=== PATIENT | male | born 1945 | race Caucasian/White ===

== ENCOUNTER 2019-12-18 09:35 | Outpatient (CLI) | payer MEDICARE, SELFPAY ==
--- NOTE | ~2019-12-18 | MR_ITS ---
EXAMINATION: MR ankle RT wo con DATE: 12/18/2019 10:42 INDICATION: Right foot and ankle pain TECHNIQUE: Magnetic resonance imaging (MRI) of the right ankle was performed without intravenous cont rast. Sequences included sagittal, coronal, and axial proton-density weighted fast spin echo without and with fat saturation. COMPARISON: None. FINDINGS: Medial ankle ligaments: There are heterotopic ossicles within the deep and superficial portions of the deltoid ligament consi stent with chronic sprains. There is scarring with thickening and mild increased signal of the distal superficial deltoid ligament. The spring ligament complex is normal. Lateral ankle ligaments: The anterior and posterior inferior tibiofibular ligaments are normal. The calcaneofibular and computer forensic specialist ior talofibular ligaments are normal. There is thickening of the anterior talofibular ligament with h eterotopic ossification at its fibular attachment consistent with sequela of chronic sprain. Tendons: Mild distal Achilles tendinosis without discrete tear. The peroneus longus and brevis tendons are nor mal. The tibialis anterior and extensor hallucis longus and extensor digitorum longus tendons are nor mal. There is fluid surrounding the normal tibialis posterior tendon consistent with tenosynovitis. T he flexor digitorum longus and flexor hallucis longus tendons are normal. Plantar fascia: There is thickening and mild increased signal at the proximal plantar aponeurosis with small retrocal caneal spur at its calcaneal origin. There is minimal surrounding edema consistent with mild acute on chronic plantar fascitis. Bones/other: Bone alignment is normal. No fracture. Moderate osteoarthritis at the calcaneocuboid articulation wit h subarticular cystic change at the cuboid. Mild osteoarthritis at the ankle joint with nonuniform melvin int space narrowing and mild subarticular edema along the anterolateral aspect of the tibiotalar bryon culation and mild cystic change along the fibular side of the ankle mortise. There is mild reactive m arrow edema at the medial malleolus and surrounding mild soft tissue edema. Fluid: Small right ankle joint effusion with proportional extension of fluid along the flexor hallucis longu s tendon sheath. IMPRESSION: 1. Scarring and heterotopic ossifications such with chronic sprains of the anterior talofibular and d eep and superficial deltoid ligaments. 2. Mild tibialis posterior tenosynovitis. 3. Acute on chronic plantar fasciitis. 4. Mild distal Achilles tendinosis. 5. 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 IMPRESSION: 1. Scarring and heterotopic ossifications such with chronic sprains of the ante rior talofibular and deep and superficial deltoid ligaments. 2. Mild tibialis posterior tenosynovitis. 3. Acute on chronic plantar fasciitis. 4. Mild distal Achilles tendinosis. 5. 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
== END 2019-12-18 09:36 | disposition home or self-care (01) ==
PROVIDERS: PCP Family Medicine Adolescent Medicine; Visit Provider Orthopaedic Surgery
DX: M72.2 Plantar fascial fibromatosis (principal); M19.071 Primary osteoarthritis, right ankle and foot
CPT/HCPCS: 73721

== ENCOUNTER 2023-09-19 18:03 | Emergency (ER) | payer MEDICARE, SELFPAY ==
--- NOTE | 2023-09-19 18:06 | PC.NURSE ---
Addendum entered by Ketty Palma RN 09/19/23 18:52: 3rd line should read 1804 instead of 604 Original Note: EMS called to witness cardiac arrest . performing CPR before they arrived, EMS took over had 3 EPI ACTIVITY MANAGER Pt arrived to room 10 with PATRICK performing compressions, IO to LLE. 0604 PEA, EPI given and placed on hospital equipment. 180 Pulse check PEA and ETT placed 7.5 23 at lip, EPI given. 181 left femoral pulse noted, VTACH noted 181 defib given for vtach 181 VFIB CPR resumed and EPI given 181 pulse check, no pulse. CPR stopped and ERP called TOD 1814
--- NOTE | 2023-09-19 18:42 | PC.NURSE ---
MAT notified @ 1832. Report number [id number].
--- NOTE | 2023-09-19 18:49 | ED.CPR ---
HPI - CPR General Chief Complaint: Cardiac Arrest/CPR Stated Complaint: Code blue Time Seen by Provider: 09/19/23 18:37 History of Present Illness HPI narrative: This is a 77-year-old male presenting to ED with CPR in progress. Per EMS the heard a thud and when she found her he was breathing adequately. She started CPR as directed by 911. When they arrived the patient was in V-tach. They followed ACLS protocols and he underwent multiple shocks and mx epinephrine doses. A LMA was placed and he was transported to the hospital. He arrived at the hospital @ approximately 25 minutes of ongoing CPR. Related Data Home Medications Medication Instructions Recorded Confirmed aspirin 81 mg tablet,delayed 81 mg PO DAILY 12/11/19 09/19/23 release (Adult Aspirin Regimen) calcium carbonate 600 mg-vitamin 1 tablet PO DAILY 12/11/19 09/19/23 D3 20 mcg (800 unit) chewable tablet (Caltrate 600 plus D) cetirizine 10 mg disintegrating PO 12/11/19 09/19/23 tablet (Zyrtec) cholecalciferol (vitamin D3) 50 50 mcg PO DAILY 12/11/19 09/19/23 mcg (2,000 unit) capsule (D3-1999) [id number] 300 mcg-K 60 1 tablet PO DAILY 12/11/19 09/19/23 mcg-lycop 600 mcg-lutein 300 mcg tablet (Centrum Silver Men) naproxen sodium 220 mg capsule 220 mg PO BID PRN 12/11/19 09/19/23 (Aleve) sacubitril 24 mg-valsartan 26 mg 1 tablet PO BID 12/11/19 09/19/23 tablet (Entresto) Allergies Allergy/AdvReac Type Severity Reaction Status Date / Time No Known Allergies Allergy Verified 09/19/23 10:40 [facility] Past Medical History Medical History Abnormal colonoscopy 08/27/18 Hyperplastic polyp Repeat 08/26 HTN (hypertension) Seasonal allergies Vision loss Surgical History Surgical History History of appendectomy Family History Family History Father Heart disease Rheumatoid arthritis Mother Lung cancer Family history of lung cancer Other Hypertension Social History Social History Smoking status: Former smoker Second hand tobacco smoke exposure: No Smoking end date: 04/30/04 Alcohol intake: current Drinks per week: 12 Alcohol use details: 3-4 per week Substance use: never Substance use type: does not use Living arrangements: with family Occupation/Education: retired Gender identity (if verbalized by the patient): Male Sexual Orientation (if Verbalized by the Patient): Straight or Heterosexual Spiritual care concerns: No Agree to blood products: Yes Exam Narrative: APPEARANCE: Cyanotic, LMA in place, loose device in progress Head: atraumatic. EYES: Fixed and dilated NOSE: Atraumatic NECK: Trachea midline RESPIRATORY: No respiratory effort CARDIOVASCULAR: Pulseless ABDOMINAL: Non-distended MUSCULOSKELETAl: No obvious deformities NEURO: Unresponsive SKIN:: Cold/blue PSYCHIATRIC: Unresponsive Procedures Intubation Intubation #1: Intubation Date: 09/19/23 Time out performed: Yes sedative: none Laryngoscope: Desirae Tube Size (cm): 7.5 Method of Intubation: orotracheal Number of Attempts: 1 Tube Secured Depth (cm): 23 Tube Secured Location: lips Tube Placement Confirmation: visualized tube passing through cords Patient Tolerated Procedure: well Intubation Complications: none MDM - Cardiac Arrest/CPR MDM Narrative Medical decision making narrative: 77-year-old male presenting 25 minutes into CPR. On pulse checks the patient was initially PEA. Patient was intubated successfully while ACLS protocols were followed. The patient did regain pulses at one point however he quickly lost them. After 45 minutes of CPR the chances of neurologically intact arrival is
--- NOTE | 2023-09-19 19:02 | PC.NURSE ---
Family at bedside, family still unsure what home they want.
--- NOTE | 2023-09-19 19:11 | PC.NURSE ---
Dr Yu notified and will sign cert.
== END 2023-09-19 20:06 | disposition expired ==
PROVIDERS: Emergency Provider Emergency Medicine; PCP Family Medicine Adolescent Medicine
DX: I46.9 Cardiac arrest, cause unspecified (principal); I10 Essential (primary) hypertension; Z87.891 Personal history of nicotine dependence; Z79.82 Long term (current) use of aspirin
CPT/HCPCS: 31500; 92950; 96374; 99285; J0171; J0282